=== PATIENT | female | born 1980 ===

== ENCOUNTER 2021-11-08 17:29 | Outpatient (REF) | payer BC, SELFPAY ==
--- NOTE | 2021-11-08 16:20 | PAPFT_PTH ---
PATIENT: Vilma Mcclelland LOC: [facility] U#:[id number] AGE/SX: 41/F ROOM: RE11/08/[address]: Isis Morris MD : [id number] BED: DIS: 11/08/2021 SPEC #: [id number] RECD: 11/08/21 17:38 STATUS: MARIA LUISA RELinda #: [id number] IRA: 11/08/21 16:[address]: Isis Morris [facility]PT[facility] Cytology RECD BY: Harmony Ohara Tissues: 1 - CX/ENDOCX FOR PAP SMEARS Procedures: PAP THIN PREP/[facility] Screening HPV DNA PROBE Comments: [id number]
== END 2021-11-08 17:30 | disposition home or self-care (01) ==
LOC: LBN 17:29
PROVIDERS: Visit Provider Obstetrics & Gynecology
DX: Z12.4 Encounter for screening for malignant neoplasm of cervix (principal); Z11.51 Encounter for screening for human papillomavirus (HPV)
CPT/HCPCS: 88142; 87624

== ENCOUNTER 2024-09-02 02:48 | Outpatient (CLI) | payer OTHER, SELFPAY ==
--- NOTE | 2024-09-02 07:21 | DI.MAMMO_ITS ---
Exam(s) MAMMO SCREENING EXAM: MAMMO SCREENING CLINICAL HISTORY: screening,z12.31,baseline TECHNIQUE: Bilateral full field digital CC and MLO mammographic images were obtained with 3D tomosyn thesis and utilizing computer aided detection (CAD). COMPARISON: This is a baseline examination. FINDINGS: Masses/Architectural Distortion: There is well-circumscribed 5 mm nodule in the outer left breast on the craniocaudad view 7 cm from the nipple. There are no areas of architectural distortion. Microcalcifications: No suspicious pleomorphic-type are seen. Skin Thickening/Nipple Retraction: None. IMPRESSION: 1. Well-circumscribed 5 mm nodule in the outer left breast on the craniocaudad view. 2. A spot compression views requested for further evaluation. Ultrasound may be indicated at that ti me. BI-RADS Category 0 - Incomplete: Need additional imaging evaluation Breast Density - Category C - Heterogeneously dense Breast density category C or D implies that the patient has dense breast tissue. Dense breast tissue is very common and is not abnormal but dense breast tissue can make it harder to find cancer on a ma mmogram. Also, dense breast tissue may increase their breast cancer risk. This information about the result of the mammogram report was provided to the patient to raise their awareness. Use this report when you speak with the patient about their risks for breast cancer, which includes their family hist ory. At that time, you may recommend for more screening tests (Ultrasound or MRI) as they might be us eful based on their risk. A negative radiographic report should not delay biopsy if a dominant or clinically suspicious mass is present. Up to ten percent of cancers are not identified on mammography. A negative report may reinforce clinical impression. Adenosis and dense breasts may obscure an underlying neoplasm. False positive reports average 6 to 10%. Patient will receive a letter notifying them of these results.
== END 2024-09-02 03:08 ==
PROVIDERS: Visit Provider Obstetrics & Gynecology
DX: Z12.31 Encounter for screening mammogram for malignant neoplasm of breast (principal); R92.333 Mammographic heterogeneous density, bilateral breasts
CPT/HCPCS: 77063; 77067

== ENCOUNTER 2024-09-07 00:32 | Outpatient (CLI) | payer OTHER, SELFPAY ==
--- NOTE | 2024-09-07 | DI.MAMMO_ITS ---
Exam(s) MG MAMMO SCREEN CALL BACK UNI US BREAST LT LIMITED EXAM: MG MAMMO SCREEN CALL BACK UNI CLINICAL HISTORY: F/U MAMMO, 5 MM NODULE OUTER LT BREAST ON CC VIEW,r92.8. TECHNIQUE: Craniocaudal and mediolateral oblique spot compression digital Mammography views of the l eftbreast with Tomosynthesis and left breast ultrasound. COMPARISON: MG MG MAMMO SCREENING from 09/02/2024 US US BREAST LT LIMITED from 09/07/2024 FINDINGS: Mammography/Tomosynthesis: Masses: 2 adjacent circumscribed nodules are noted in the posterior upper outer quadrant. They have the appearance of intramammary lymph nodes. Architectural Distortion: None seen. Microcalcifictions: No suspicious pleomorphic-type are seen. Skin Thickening/Nipple Retraction: None. Left breast US: Echotexture: Normal appearance of the glandular tissue. Shadowing: No suspicious foci. Cyst: 5 millimeter smoothly marginated hypoechoic area in of the 1 o'clock position 3 cm from the nip ple, likely proteinaceous cyst. Solid lesions: No suspicious masses seen. Normal appearing lymph nodes are noted in the posterior up per outer quadrant, in the 2 o'clock position, 7 cm from the nipple. These correspond to the mammogr aphic nodules. Ductal dilation: None. IMPRESSION: 1. No evidence of malignancy is noted. 2. Six-month follow-up left breast ultrasound recommended. 3. The findings were discussed with the patient on the date of the examination. BI-RADS Category 3 - 6 month - Probably Benign Finding: Recommend follow-up mammography in 6 months Breast Density - Category C - Heterogeneously dense A mammogram that demonstrates density of C or D indicates the patient's breast tissue is dense. Dense breast tissue is very common and is not abnormal, but dense breast tissue can make it harder to find cancer on a mammogram. Also, dense breast tissue may increase their breast cancer risk. This informa tion about the result of the mammogram report was provided to the patient to raise their awareness. U se this report when you speak with the patient about their risks for breast cancer, which includes th eir family history. At that time, you may recommend for more screening tests (Ultrasound or MRI) as t hey might be useful based on their risk. A negative radiographic report should not delay biopsy if a dominant or clinically suspicious mass is present. Up to ten percent of cancers are not identified on mammography. A negative report may reinforce clinical impression. Adenosis and dense breasts may obscure an underlying neoplasm. False positive reports average 6 to 10%. Patient will receive a letter notifying them of these results.
== END 2024-09-07 00:52 ==
LOC: DI 00:35
PROVIDERS: Visit Provider Obstetrics & Gynecology
DX: R92.8 Other abnormal and inconclusive findings on diagnostic imaging of breast (principal); R92.333 Mammographic heterogeneous density, bilateral breasts; Z12.31 Encounter for screening mammogram for malignant neoplasm of breast; D24.1 Benign neoplasm of right breast
CPT/HCPCS: 76642; 77063; 77067